=== PATIENT | male | born 1965 | race Caucasian/White ===

== ENCOUNTER 2016-09-24 01:15 | Emergency (ER) | payer BC ==
--- NOTE | 2016-09-24 01:34 | ERPHSYRPT ---
- History of Present Illness Time Seen by Provider: 09/24/16 01:25 Source: patient Exam Limitations: no limitations Patient Subjective Stated Complaint: STATES THAT HE WAS AWAKENED SUDDENLY WITH SENSATION OF UNABLE TO BREATHE - STATES THAT HE FELT LIKE HIS AIRWAY SHUT OFF - STATES THAT HE DID PROAIR INHALER AND WAS ABLE TO BREATHE AFTERWARDS Triage Nursing Assessment: AMBULATORY TO TREATMENT AREA - STEADY GAIT - MOVES ALL EXTREMITIES WITH EQUAL STRENGTH. RESPS EASY - NON-LABORED. SKIN PWD - NO RASH/INJURY. ALERT/ORIENTED - PLEASANT AFFECT Physician History: FOR THE PAST WEEK PT HAS HAD COUGH, INTERMITTENT DIARRHEA AND A RAW THROAT WITH WHEEZING YESTERDAY. TONIGHT PT AWOKE SUDDENLY AND COULD NOT GET AIR IN INITIALLY BUT USED PROAIR AND IS NOW BREATHING NORMALLY. PT HAS A HX OF REFLUX AND POSSIBLY HAS ASPIRATED TONIGHT. PT DENIES CHEST PAIN, FEVER, VOMITING. Allergies/Adverse Reactions: No Known Drug Allergies Allergy (Unverified 09/24/16 01:16) Home Medications: Albuterol Sulfate [Proair Hfa] 2 puff IH Q12H PRN PRN 09/24/16 [History] Alprazolam 0.25 mg [xanAX 0.25 MG] 0.25 mg PO BID 09/24/16 [History] Atorvastatin Calcium 20 mg PO DAILY 09/24/16 [History] Loratadine 10 mg [Claritin 10 mg] 10 mg PO DAILY 09/24/16 [History] Omeprazole 20 MG [Prilosec 20 mg] 20 mg PO DAILY 09/24/16 [History] Hx Tetanus, Diphtheria Vaccination/Date Given: Yes Hx Influenza Vaccination/Date Given: Yes Hx Pneumococcal Vaccination/Date Given: Yes Immunizations Up to Date: Yes - Review of Systems Constitutional: No Fever Ears, Nose, & Throat: Throat Pain Respiratory: Cough, Dyspnea, Wheezing Cardiac: No Chest Pain Abdominal/Gastrointestinal: Diarrhea, No Abdominal Pain, No Vomiting All Other Systems: Reviewed and Negative - Past Medical History Pertinent Past Medical History: Yes Cardiac History: High Cholesterol Respiratory History: Asthma - Past Surgical History Past Surgical History: Yes Gastrointestinal: Appendectomy, Cholecystectomy - Social History Smoking Status: Never smoker Exposure to second hand smoke: No Drug Use: none Patient Lives Alone: No - Nursing Vital Signs Nursing Vital Signs: Initial Vital Signs Temperature 97.8 F Temperature Source Oral Pulse Rate 95 Respiratory Rate 18 Blood Pressure [Right Arm] 142/92 Pain Intensity 0 - Physical Exam General Appearance: alert Eye Exam: PERRL/EOMI Ears, Nose, Throat Exam: TMs normal, moist mucous membranes, pharyngeal erythema Neck Exam: normal inspection Respiratory Exam: other (BRONCHIAL B.S. ALL CAMPBELL.) Cardiovascular Exam: normal heart sounds Gastrointestinal/Abdomen Exam: soft, normal bowel sounds Back Exam: normal range of motion Extremity Exam: other (NO ANKLE EDEMA) Neurologic Exam: alert, cooperative Skin Exam: warm, dry SpO2 Interpretation: normal SpO2: 98 Oxygen Delivery: Room Air - Course Nursing assessment & vital signs reviewed: Yes - Departure Time of Disposition: 01:46 Departure Disposition: Home Clinical Impression: BRONCHITIS, PHARYNGITIS Condition: Fair Critical Care Time: No Instructions: Bronchitis Additional Instructions: FOLLOW UP WITH PRIVATE DOCTOR TOMORROW. Prescriptions: Guaifenesin/Codeine Phosphate [Robitussin AC Syrup] 10 ml PO Q4H PRN PRN #120 ml PRN Reason: Cough Azithromycin 250 mg [Zithromax 250 MG TABLET] 250 mg PO ZPACK #6 tablet
[2016-09-24] MEDS ORDERED: Rocephin 1000 MG INJ IM ONE (01:35)
[2016-09-24] MEDS ORDERED: Robitussin AC Syrup Unit Dose Cup PO PRN (01:35)
[2016-09-24] MEDS ORDERED: Robitussin AC Syrup Unit Dose Cup ONE (01:38)
[2016-09-24] MEDS ORDERED: Rocephin 1000 MG INJ ONE (01:38)
[2016-09-24] MEDS ORDERED: XYLOCAINE 1% HCL 20 ML MDV ONE (01:38)
[2016-09-24 02:09] VITALS: BP 133/90; PULSE 88; O2SAT 96
== END 2016-09-24 02:09 | disposition home or self-care (01) ==
LOC: ED 01:15
DX: J40 Bronchitis, not specified as acute or chronic (principal); J02.9 Acute pharyngitis, unspecified
CPT/HCPCS: 96372; 99284; J0696; A9270-GY

== ENCOUNTER 2016-10-15 21:34 | Emergency (ER) | payer BC ==
[2016-10-15] MEDS ORDERED: solu-MEDROL 125 MG IM ONE (21:52)
[2016-10-15] MEDS ORDERED: Rocephin 1000 MG INJ IM ONE (21:53)
--- NOTE | 2016-10-15 21:56 | ERPHSYRPT ---
- History of Present Illness Time Seen by Provider: 10/15/16 21:54 Source: patient Exam Limitations: no limitations Patient Subjective Stated Complaint: pt reports 4 episodes of diarrhea beginning today-states that he just finished a z-pack for bronchitis-states he is still coughing-nonproductive cough Triage Nursing Assessment: pt pink warm et byh-qigow-scu cough noted during triage-lungs clear et equal bilaterally Physician History: pt reports 4 episodes of diarrhea beginning today-states that he just finished a z-pack for bronchitis-states he is still coughing-nonproductive cough Timing/Duration: today Severity: mild Associated Symptoms: cough Allergies/Adverse Reactions: No Known Drug Allergies Allergy (Verified 10/15/16 21:43) Home Medications: Albuterol Sulfate [Proair Hfa] 2 puff IH Q12H PRN PRN 09/24/16 [History] Alprazolam 0.25 mg [xanAX 0.25 MG] 0.25 mg PO BID 09/24/16 [History] Atorvastatin Calcium 20 mg PO DAILY 09/24/16 [History] Loratadine 10 mg [Claritin 10 mg] 10 mg PO DAILY 09/24/16 [History] Omeprazole 20 MG [Prilosec 20 mg] 20 mg PO DAILY 09/24/16 [History] Hx Tetanus, Diphtheria Vaccination/Date Given: Yes Hx Influenza Vaccination/Date Given: Yes Hx Pneumococcal Vaccination/Date Given: Yes Immunizations Up to Date: Yes - Review of Systems Constitutional: No Fever, No Chills Eyes: No Symptoms Ears, Nose, & Throat: No Symptoms Respiratory: Cough, No Dyspnea Cardiac: No Chest Pain, No Edema, No Syncope Abdominal/Gastrointestinal: Diarrhea, No Abdominal Pain, No Nausea, No Vomiting Genitourinary Symptoms: No Dysuria Musculoskeletal: No Back Pain, No Neck Pain Skin: No Rash Neurological: No Dizziness, No Focal Weakness, No Sensory Changes Psychological: No Symptoms Endocrine: No Symptoms All Other Systems: Reviewed and Negative - Past Medical History Pertinent Past Medical History: Yes Cardiac History: High Cholesterol Respiratory History: Asthma - Past Surgical History Past Surgical History: Yes Gastrointestinal: Appendectomy, Cholecystectomy - Social History Smoking Status: Never smoker Exposure to second hand smoke: No Drug Use: none Patient Lives Alone: No - Nursing Vital Signs Nursing Vital Signs: Initial Vital Signs Temperature 97.6 F Temperature Source Oral Pulse Rate 104 Respiratory Rate 20 Blood Pressure [Right Arm] 139/75 Pain Intensity 0 - Physical Exam General Appearance: no apparent distress, alert Eye Exam: PERRL/EOMI, eyes nml inspection Ears, Nose, Throat Exam: normal ENT inspection, TMs normal, pharynx normal, moist mucous membranes Neck Exam: normal inspection, non-tender, supple, full range of motion Respiratory Exam: normal breath sounds, lungs clear, No respiratory distress Cardiovascular Exam: regular rate/rhythm, normal heart sounds, normal peripheral pulses Gastrointestinal/Abdomen Exam: soft, normal bowel sounds, No tenderness, No mass Back Exam: normal inspection, normal range of motion, No CVA tenderness, No vertebral tenderness Extremity Exam: normal inspection, normal range of motion, pelvis stable Neurologic Exam: alert, oriented x 3, cooperative, normal mood/affect, nml cerebellar function, nml station & gait, sensation nml, No motor deficits Skin Exam: normal color, warm, dry, No rash Lymphatic Exam: No adenopathy SpO2: 97 Oxygen Delivery: Room Air - Course Nursing assessment & vital signs reviewed: Yes Ordered Tests: Medication Summary Generic Name Dose Route Start Last Admin Trade Name Freq PRN Reason Stop Dose Admin Ceftriaxone Sodium 1,000 mg 10/15/16 21:53 Rocephin 1000 Mg Inj IM 10/15/16 21:54 STAT ONE Methylprednisolone Sodium Succinate 125 mg 10/15/16 21:52 Solu-Medrol 125 Mg IM 10/15/16 21:53 STAT ONE - Progress Progress: unchanged Counseled pt/family regarding: diagnosis, need for follow-up - Departure Time of Disposition: 21:56 Departure Disposition: Home Clinical Impression: Bronchitis, Diarrhea due to drug Condition: Stable Critical Care Time: No Referrals: MICHELE PERRY [Primary Care Provider] - Additional Instructions: Please follow the instructions given to you. Please take your medication as prescribed if given. If symptoms recur or get worse, come back to the emergency room if you cannot reach your primary care physician, or call your primary care physician for an appointment. Again if your symptoms get worse, come back to the emergency room. Thanks for visiting emergency room, and let us take care of you. Prescriptions: Doxycycline Hyclate 100 mg PO BID #20 tablet
[2016-10-15] MEDS ORDERED: Rocephin 1000 MG INJ ONE (21:57)
[2016-10-15] MEDS ORDERED: XYLOCAINE 1% HCL 20 ML MDV ONE (21:57)
[2016-10-15] MEDS ORDERED: solu-MEDROL 125 MG ONE (21:57)
[2016-10-15 22:15] VITALS: BP 136/86; PULSE 78; O2SAT 96
== END 2016-10-15 22:14 | disposition home or self-care (01) ==
LOC: ED 21:34
DX: J40 Bronchitis, not specified as acute or chronic (principal); K52.1 Toxic gastroenteritis and colitis
CPT/HCPCS: 96372; 99284; J0696; J2930

== ENCOUNTER 2016-12-13 22:23 | Emergency (ER) | payer BC ==
[2016-12-13 22:50] VITALS: BP 121/78; PULSE 123; O2SAT 97
[2016-12-13] MEDS ORDERED: NORCO 5/325 MG PO ONE (22:56)
[2016-12-13] MEDS ORDERED: Rocephin 1000 MG INJ IM ONE (22:56)
--- NOTE | 2016-12-13 22:57 | ERPHSYRPT ---
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 has been having body aches and high fevers. took 800mg ibuprofin at 20:45 and fever actually went up. Triage Nursing Assessment: pt alert and orietnedx3, lung sounds cler, puopils perr3, diaphoretic, pulses equal bialteral radius, has roughly ortiz size area located on left thigh where he states tick was latched on 6 weeks ago, area is reddened and still very present on skin ambulated well gait is steady , pt stated mild weakness and body aches over past 3 days. Physician History: SIX WEEKS AGO PT WAS BITTEN BY A SMALL TICK ON THE LEFT THIGH. PT STATES THE TICK WAS EMBEDDED IN HIS LEFT THIGH FOR LESS THAN 3 DAYS. FOR THE PAST 3 DAYS PT HAS HAD BODY ACHES; FOR THE PAST 2 DAYS FEVER UP TO 102 DEGREES; TODAY DIAPHORESIS AND CHILLS. PT DENIES COUGH, CHEST PAIN, SHORTNESS OF AIR, ABDOMINAL PAIN. Allergies/Adverse Reactions: No Known Drug Allergies Allergy (Verified 10/15/16 21:43) Home Medications: Albuterol Sulfate [Proair Hfa] 2 puff IH Q12H PRN PRN 09/24/16 [History] Alprazolam 0.25 mg [xanAX 0.25 MG] 0.25 mg PO BID 09/24/16 [History] Atorvastatin Calcium 20 mg PO DAILY 09/24/16 [History] Loratadine 10 mg [Claritin 10 mg] 10 mg PO DAILY 09/24/16 [History] Omeprazole 20 MG [Prilosec 20 mg] 20 mg PO DAILY 09/24/16 [History] Hx Tetanus, Diphtheria Vaccination/Date Given: Yes Hx Influenza Vaccination/Date Given: Yes Hx Pneumococcal Vaccination/Date Given: Yes Immunizations Up to Date: Yes - Review of Systems Constitutional: Fever, Chills Respiratory: No Dyspnea Cardiac: No Chest Pain Abdominal/Gastrointestinal: No Abdominal Pain, No Vomiting Musculoskeletal: Myalgias Neurological: No Headache Endocrine: Excessive Sweating All Other Systems: Reviewed and Negative - Past Medical History Pertinent Past Medical History: Yes Cardiac History: High Cholesterol Respiratory History: Asthma - Past Surgical History Past Surgical History: Yes Gastrointestinal: Appendectomy, Cholecystectomy - Social History Smoking Status: Never smoker Exposure to second hand smoke: No Drug Use: none Patient Lives Alone: No - Nursing Vital Signs Nursing Vital Signs: Initial Vital Signs Temperature 102 F 12/13/16 22:23 Pulse Rate 123 H 12/13/16 22:23 Respiratory Rate 18 12/13/16 22:23 Blood Pressure 121/78 12/13/16 22:23 O2 Sat by Pulse Oximetry 97 12/13/16 22:23 Pain Scale Pain Intensity 3 - Physical Exam General Appearance: alert Eye Exam: PERRL/EOMI Ears, Nose, Throat Exam: TMs normal, moist mucous membranes, pharyngeal erythema Neck Exam: normal inspection, full range of motion Respiratory Exam: normal breath sounds, lungs clear Cardiovascular Exam: normal heart sounds Gastrointestinal/Abdomen Exam: soft, normal bowel sounds Back Exam: normal range of motion Extremity Exam: No pedal edema Neurologic Exam: alert, cooperative Skin Exam: other (2 mm DIAMETER MACULAR ERYTHEMA OVER SUPERIOR LEFT ANTERIOLATERAL THIGH) SpO2 Interpretation: normal SpO2: 97 Oxygen Delivery: Room Air - Course Nursing assessment & vital signs reviewed: Yes Ordered Tests: Medication Summary Discontinued Medications Generic Name Dose Route Start Last Admin Trade Name Freq PRN Reason Stop Dose Admin Hydrocodone Bitart/Acetaminophen 2 tab 12/13/16 22:56 [place] 5/325 Mg PO 12/13/16 22:57 STAT ONE Ceftriaxone Sodium 1,000 mg 12/13/16 22:56 Rocephin 1000 Mg Inj IM 12/13/16 22:57 STAT ONE - Departure Time of Disposition: 23:12 Departure Disposition: Home Clinical Impression: PHARYNGITIS Condition: Stable Critical Care Time: No Instructions: Pharyngitis/Tonsillopharyngitis -- Adult Additional Instructions: FOLLOW UP WITH PRIVATE DOCTOR TOMORROW. Prescriptions: Ibuprofen 200 mg [Motrin 200 mg] 600 mg PO Q6HPRN PRN #30 tablet PRN Reason: Fever Azithromycin 250 mg [Zithromax 250 MG TABLET] 250 mg PO ZPACK #6 tablet
[2016-12-13] MEDS ORDERED: Rocephin 1000 MG INJ ONE (22:59)
[2016-12-13] MEDS ORDERED: XYLOCAINE 1% HCL 20 ML MDV ONE (22:59)
[2016-12-13] MEDS ORDERED: NORCO 5/325 MG ONE (22:59)
== END 2016-12-13 23:28 | disposition home or self-care (01) ==
LOC: ED 22:23
DX: J02.9 Acute pharyngitis, unspecified (principal)
CPT/HCPCS: 96372; 99284; J0696; A9270-GY

== ENCOUNTER 2017-06-23 02:37 | Emergency (ER) | payer BC ==
[2017-06-23 02:47] VITALS: BP 142/89
[2017-06-23] MEDS ORDERED: Sodium Chloride 0.9% 1000 ML 1,000 ML IV STA (03:01)
[2017-06-23] MEDS ORDERED: Zofran 4 MG/2 ML VIAL IV ONE (03:01)
--- NOTE | 2017-06-23 03:08 | ERPHSYRPT ---
- History of Present Illness Time Seen by Provider: 06/23/17 02:57 Historian: patient Exam Limitations: no limitations Patient Subjective Stated Complaint: Emesis Triage Nursing Assessment: Pt presents to the ED with complaints of emesis that began at approximately 1800 today. Pt states "I think I have food poisoning." Pt denies pain or other complaints. Pt states approximately 7 episodes of emesis. Pt is A7O x4, no distress noted. Physician History: Pt started c/o diffuse abdominal pain, cramps, vomiting, diarrhea since yesterday. He denies vomiting blood or coffee ground material, no fever, chills , bloody or black stool or urinary complaints. He also denies cold symptoms, sore throat, congestion or chest pain. Timing/Duration: yesterday Activities at Onset: none Quality: cramping Abdominal Pain Onset Location: RLQ, LLQ, periumbilical Pain Radiation: no radiation Severity of Pain-Max: severe Severity of Pain-Current: moderate Modifying Factors: Improves With: nothing Associated Symptoms: diarrhea, loss of appetite, nausea, vomiting Previous symptoms: no prior history Allergies/Adverse Reactions: No Known Drug Allergies Allergy (Verified 10/15/16 21:43) Home Medications: Albuterol Sulfate [Proair Hfa] 2 puff IH Q12H PRN PRN 09/24/16 [History] Alprazolam 0.25 mg [xanAX 0.25 MG] 0.25 mg PO BID 09/24/16 [History] Atorvastatin Calcium 20 mg PO DAILY 09/24/16 [History] Loratadine 10 mg [Claritin 10 mg] 10 mg PO DAILY 09/24/16 [History] Omeprazole 20 MG [Prilosec 20 mg] 20 mg PO DAILY 09/24/16 [History] Hx Tetanus, Diphtheria Vaccination/Date Given: Yes Hx Influenza Vaccination/Date Given: Yes Hx Pneumococcal Vaccination/Date Given: Yes Immunizations Up to Date: Yes - Review of Systems Constitutional: No Symptoms Abdominal/Gastrointestinal: Abdominal Pain, Nausea, Vomiting, Diarrhea All Other Systems: Reviewed and Negative - Past Medical History Pertinent Past Medical History: Yes Cardiac History: High Cholesterol Respiratory History: Asthma Psycho-Social History: Anxiety - Past Surgical History Past Surgical History: Yes Gastrointestinal: Appendectomy, Cholecystectomy - Social History Smoking Status: Never smoker Exposure to second hand smoke: No Drug Use: none Patient Lives Alone: No - Nursing Vital Signs Nursing Vital Signs: Initial Vital Signs Temperature 97.9 F 06/23/17 02:42 Pulse Rate 115 H 06/23/17 02:42 Respiratory Rate 16 06/23/17 02:42 Blood Pressure 142/89 06/23/17 02:42 O2 Sat by Pulse Oximetry 95 06/23/17 02:42 Pain Scale Pain Intensity 0 - Physical Exam General Appearance: no apparent distress Eye Exam: eyes nml inspection Ears, Nose, Throat Exam: normal ENT inspection, pharynx normal Neck Exam: normal inspection, non-tender, supple, No JVD Respiratory Exam: normal breath sounds, lungs clear, airway intact, No chest tenderness Cardiovascular Exam: regular rate/rhythm, normal heart sounds, normal peripheral pulses, No murmur Gastrointestinal/Abdomen Exam: soft, normal bowel sounds, tenderness (mild, diffuse), No distention, No mass, No guarding, No pulsatile mass, No rebound Back Exam: normal inspection, No CVA tenderness Extremity Exam: normal inspection, No calf tenderness Neurologic Exam: alert, oriented x 3, cooperative, normal mood/affect Skin Exam: normal color, warm, dry, No rash Lymphatic Exam: No adenopathy SpO2 Interpretation: normal SpO2: 95 Oxygen Delivery: Room Air - Course Nursing assessment & vital signs reviewed: Yes EKG Interpreted by Me: RATE (111/min), Sinus Rhythm, Sinus Tach, NORMAL AXIS, NORMAL INTERVALS, Non-specific ST Changes - CT Exams Abdomen/Pelvis CT Interpretation: Negative Ordered Tests: Active Orders 24 hr Category Date Time Status EKG-ER Only STAT Care 06/23/17 03:01 Active IV Insertion STAT Care 06/23/17 03:01 Active NPO (ED) STAT Care 06/23/17 03:01 Active ABDOMEN AND PELVIS W CONTRAST [CT] Stat Exams 06/23/17 03:02 Taken AMYLASE Stat Lab 06/23/17 03:20 Completed CBC W DIFF Stat Lab 06/23/17 03:20 Completed CMP Stat Lab 06/23/17 03:20 Completed LIPASE Stat Lab 06/23/17 03:20 Completed Lactic Acid Stat Lab 06/23/17 03:30 Results Manual Differential NC Stat Lab 06/23/17 03:20 Completed TROPONIN Q3H Lab 06/23/17 03:20 Completed TROPONIN Q3H Lab 06/23/17 06:15 Ordered TROPONIN Q3H Lab 06/23/17 09:15 Ordered TROPONIN Q3H Lab 06/23/17 12:15 Ordered TROPONIN Q3H Lab 06/23/17 15:15 Ordered UA W/RFX UR CULTURE Stat Lab 06/23/17 04:25 Completed Medication Summary Discontinued Medications Generic Name Dose Route Start Last Admin Trade Name Yousufq PRN Reason Stop Dose Admin Sodium Chloride 1,000 mls @ 999 mls/hr 06/23/17 03:01 06/23/17 03:12 Sodium Chloride 0.9% 1000 Ml IV 06/23/17 04:01 999 mls/hr .Q1H1M STA Administration Sodium Chloride Confirm 06/23/17 03:12 Sodium Chloride 0.9% 1000 Ml Administered 06/23/17 03:13 Dose 1,000 mls @ ud .ROUTE .STK-MED ONE Ondansetron HCl 4 mg 06/23/17 03:01 06/23/17 03:13 Zofran 4 Mg/2 Ml Vial IV 06/23/17 03:02 4 mg STAT ONE Administration Ondansetron HCl Confirm 06/23/17 03:12 Zofran 4 Mg/2 Ml Vial Administered 06/23/17 03:13 Dose 4 mg .ROUTE .STK-MED ONE Lab/Rad Data: Laboratory Result Diagrams 06/23/17 03:20 06/23/17 03:20 Laboratory Results 06/23/17 06/23/17 06/23/17 Range/Units 04:25 03:30 03:20 WBC (4.0-10.5) K/mm3 RBC (4.1-5.6) M/mm3 Hgb (12.5-18.0) gm/dl Hct (42-50) % MCV (78-100) fl MCH (26-32) pg MCHC (32-36) g/dl RDW (11.5-14.0) % Plt Count (150-450) K/mm3 MPV (6-9.5) fl Sodium (136-145) mEq/L Potassium (3.5-5.1) mEq/L Chloride (98-107) mEq/L Carbon Dioxide (21-32) mEq/L Anion Gap (5-15) MEQ/L BUN (9-20) mg/dL Creatinine (0.55-1.30) mg/dl Estimated GFR ML/MIN Glucose (70-110) MG/DL Lactic Acid 2.2 H (0.4-2.0) Calcium (8.5-10.1) mg/dL Total Bilirubin (0.2-1.0) mg/dL AST (15-37) U/L ALT (12-78) U/L Alkaline Phosphatase (46-116) U/L Troponin I (0.000-0.056) ng/ml Serum Total Protein (6.4-8.2) gm/dL Albumin (3.4-5.0) g/dL Amylase (25-115) U/L Lipase (73-393) U/L Ur Collection Type CLEAN CATCH Urine Color YELLOW (YELLOW) Urine Appearance CLEAR (CLEAR) Urine pH 5.0 (5-6) Ur Specific [place] 1.015 (1.005-1.025) Urine Protein NEGATIVE (Negative) Urine Ketones MODERATE (NEGATIVE) Urine Blood NEGATIVE (0-5) [place]/ul Urine Nitrite NEGATIVE (NEGATIVE) Urine Bilirubin NEGATIVE (NEGATIVE) Urine Urobilinogen NORMAL (0-1) mg/dL Ur Leukocyte Esterase NEGATIVE (NEGATIVE) Urine Culture Reflexed NO (NO) Urine Glucose NEGATIVE (NEGATIVE) mg/dL Influenza Type A Ag NEGATIVE (NEGATIVE) Influenza Type B Ag NEGATIVE (NEGATIVE) RSV (PCR) NEGATIVE (Negative) Specimen Received 06/23/17 0425 06/23/17 06/23/17 06/23/17 Range/Units 03:20 03:20 03:20 WBC 12.9 H (4.0-10.5) K/mm3 RBC 5.92 H (4.1-5.6) M/mm3 Hgb 17.4 (12.5-18.0) gm/dl Hct 51.0 H (42-50) % MCV 86.1 (78-100) fl MCH 29.3 (26-32) pg MCHC 34.1 (32-36) g/dl RDW 13.4 (11.5-14.0) % Plt Count 218 (150-450) K/mm3 MPV 11.0 H (6-9.5) fl Sodium 142 (136-145) mEq/L Potassium 4.1 (3.5-5.1) mEq/L Chloride 105 (98-107) mEq/L Carbon Dioxide 25.3 (21-32) mEq/L Anion Gap 16.0 H (5-15) MEQ/L BUN 17 (9-20) mg/dL Creatinine 1.38 H (0.55-1.30) mg/dl Estimated GFR 57 ML/MIN Glucose 177 H (70-110) MG/DL Lactic Acid (0.4-2.0) Calcium 9.3 (8.5-10.1) mg/dL Total Bilirubin 0.70 (0.2-1.0) mg/dL AST 19 (15-37) U/L ALT 40 (12-78) U/L Alkaline Phosphatase 68 (46-116) U/L Troponin I < 0.017 (0.000-0.056) ng/ml Serum Total Protein 8.3 H (6.4-8.2) gm/dL Albumin 4.5 (3.4-5.0) g/dL Amylase 26 (25-115) U/L Lipase 86 (73-393) U/L Ur Collection Type Urine Color (YELLOW) Urine Appearance (CLEAR) Urine pH (5-6) Ur Specific [place] (1.005-1.025) Urine Protein (Negative) Urine Ketones (NEGATIVE) Urine Blood (0-5) [place]/ul Urine Nitrite (NEGATIVE) Urine Bilirubin (NEGATIVE) Urine Urobilinogen (0-1) mg/dL Ur Leukocyte Esterase (NEGATIVE) Urine Culture Reflexed (NO) Urine Glucose (NEGATIVE) mg/dL Influenza Type A Ag (NEGATIVE) Influenza Type B Ag (NEGATIVE) RSV (PCR) (Negative) Specimen Received - Progress Progress: improved Progress Note: 06/23/17 04:37 Improved, afebrile, denies pain, or nausea, did not vomit. Ct and other results discussed with him, will be discharged with instructions to continue liquid diet , and follow up with PCP next week, return if worsening, fever> 102F. He understood, all questions answered. - Departure Time of Disposition: 04:38 Departure Disposition: Home Clinical Impression: Gastroenteritis Condition: Stable Critical Care Time: No Referrals: MICHELE PERRY [Primary Care Provider] - Instructions: Vomiting -- Adult, Viral Gastroenteritis, Adult (DC) Additional Instructions: Rest x 2-3 days, continue liquid diet, return if severe pain, vomiting, fever > 102 F! Prescriptions: Ondansetron ODT 4 MG [Zofran Odt 4 mg] 4 mg PO Q6H PRN PRN 5 Days #10 tab.rapdis PRN Reason: Vomiting
[2017-06-23] MEDS ORDERED: Zofran 4 MG/2 ML VIAL ONE (03:12)
[2017-06-23] MEDS ORDERED: Sodium Chloride 0.9% 1000 ML 1,000 ML ONE (03:12)
[2017-06-23 03:24] LABS: Granulocyte Absolute (ANC) 12.05 (1.4-6.9); Hemoglobin 17.4 gm/dl (12.5-18.0); Mean Cell Volume 86.1 fl (78-100); Mean Corpuscular Hgb Concent. 34.1 g/dl (32-36); Platelet Count 218 K/mm3 (150-450); Red Blood Count 5.92 M/mm3 (4.1-5.6); Red Cell Distribution Width 13.4 % (11.5-14.0); White Blood Count 12.9 K/mm3 (4.0-10.5)
[2017-06-23 03:38] LABS: Lactic Acid 2.2 (0.4-2.0)
[2017-06-23 03:51] LABS: ALBUMIN 4.5 g/dL (3.4-5.0); BILIRUBIN,TOTAL 0.7 mg/dL (0.2-1.0); Calcium 9.3 mg/dL (8.5-10.1); Carbon Dioxide 25.3 mEq/L (21-32); Creatinine 1 1.38 mg/dl (0.55-1.30); Potassium 4.1 mEq/L (3.5-5.1); Total Protein 8.3 gm/dL (6.4-8.2)
[2017-06-23 03:55] LABS: Mean Corpuscular Hemoglobin 29.3 pg (26-32)
[2017-06-23 03:59] LABS: INFLUENZA A NEGATIVE (NEGATIVE); INFLUENZA B NEGATIVE (NEGATIVE); RESPIRATORY SYNCTIAL VIRUS NEGATIVE (Negative)
[2017-06-23 04:16] VITALS: PULSE 100
[2017-06-23 04:31] LABS: Appearance CLEAR (CLEAR); Bilirubin NEGATIVE (NEGATIVE); Blood NEGATIVE Ery/ul (0-5); Glucose NEGATIVE (NEGATIVE); Ketones MODERATE (NEGATIVE); Leukocyte Esterase NEGATIVE (NEGATIVE); Nitrite NEGATIVE (NEGATIVE); Protein,Urine Dip NEGATIVE (Negative); Specific Gravity 1.015 (1.005-1.025); Urobilinogen NORMAL mg/dL (0-1)
[2017-06-23 04:40] VITALS: O2SAT 95
[2017-06-23 05:15] LABS: Lymphocytes 12 % (24-44); Monocyte 4 % (0.0-12.0); Neutrophils 84 % (36.-66.); Platelet Estimate NORMAL (NORMAL); Total Cells Counted 100
--- NOTE | 2017-06-23 09:08 | XRAY ---
Indication: Nausea, vomiting, and diarrhea. Possible food poisoning per patient. Multiple contiguous axial images obtained through the abdomen and pelvis using 80 cc Isovue 370 contrast only. Comparison: None Lung bases demonstrates mild bibasilar dependent atelectasis. The heart is not enlarged. Stomach is moderately distended with fluid. Small bowel loops are also mildly fluid distended throughout with bowel wall thickening/enhancement, ileus versus gastroenteritis. Minimal scattered colonic diverticulosis without diverticulitis. Previous reported appendectomy and cholecystectomy. No free fluid/air. Remaining liver, pancreas, spleen, adrenal glands, kidneys, ureters, bladder, and aorta appear normal in CT appearance and attenuation. No pathologic retroperitoneal lymphadenopathy. Osseous structures intact with mild degenerative changes throughout the spine. Impression: 1. Fluid distended stomach and small bowel loops with bowel wall thickening/enhancement, ileus versus gastroenteritis. 2. Minimal colonic diverticulosis. Comment: Preliminary interpretation was made by [facility]. No discrepancy. CT DI 22.48
== END 2017-06-23 04:51 | disposition home or self-care (01) ==
LOC: ED 02:37
DX: K52.9 Noninfective gastroenteritis and colitis, unspecified (principal); J45.909 Unspecified asthma, uncomplicated; F41.9 Anxiety disorder, unspecified
CPT/HCPCS: 36000; 36415; 74177; 80053; 81002; 82150; 83605; 83690; 84484; 85025; 87631; 93005; 96360; 96374; 99284; J2405

== ENCOUNTER 2017-10-06 | Inpatient (IN) | payer BC ==
[2017-10-06] MEDS ORDERED: Sodium Chloride 0.9% 1000 ML 1,000 ML IV SCH (20:15)
[2017-10-06] MEDS ORDERED: VANCOCIN 1 GM VIAL*** 2 GM in Sodium Chloride 0.9% 250 ML 250 ML IV SCH (22:00)
[2017-10-06] MEDS: TYLENOL 325 MG PO PRN (23:23)
[2017-10-06] MEDS ORDERED: Vancomycin 1GM/ Ns 250ML*** 500 ML IV ONE (23:44)
[2017-10-07] MEDS: ZOCOR 20MG PO SCH ×2 (00:54→21:07)
[2017-10-07] MEDS: Protonix 40MG Tablet PO SCH ×2 (00:54→21:06)
[2017-10-07] MEDS: xanAX 0.25 MG PO SCH ×3 (00:54→21:07)
[2017-10-07] MEDS: TYLENOL 325 MG PO PRN ×3 (05:20→21:06)
[2017-10-07 06:20] LABS: Hematocrit 43.4 % (42-50); Mean Cell Volume 86.3 fl (78-100); Mean Corpuscular Hemoglobin 29.8 pg (26-32); Mean Corpuscular Hgb Concent. 34.6 g/dl (32-36); Mean Platelet Volume 11.1 fl (6-9.5); Platelet Count 129 K/mm3 (150-450); Red Blood Count 5.03 M/mm3 (4.1-5.6); Red Cell Distribution Width 13.5 % (11.5-14.0); White Blood Count 3.1 K/mm3 (4.0-10.5)
[2017-10-07 06:35] LABS: ALBUMIN 3.6 g/dL (3.5-5.0); ALKALINE PHOSPHATASE 84 U/L (38-126); ANION GAP 11.1 MEQ/L (5-15); BLOOD UREA NITROGEN 11 mg/dL (9-20); CHLORIDE 104 mmol/L (98-107); Calcium 8.5 mg/dL (8.4-10.2); Carbon Dioxide 25 mmol/L (22-30); Creatinine 1 0.89 mg/dL (0.66-1.25); Glucose 120 mg/dL (74-106); Potassium 3.5 mmol/L (3.5-5.1); SGOT/AST 71 U/L (17-59); SGPT/ALT 73 U/L (0-50); SODIUM 136 mmol/L (137-145); Total Protein 6.6 g/dL (6.3-8.2)
[2017-10-07 07:17] LABS: BAND 12 % (0.0-2.0); Lymphocytes 28 % (24-44); Monocyte 2 % (0.0-12.0); Neutrophils 58 % (36.-66.); Total Cells Counted 100
[2017-10-07 07:18] LABS: ANISOCYTOSIS 1+; Platelet Estimate NORMAL (NORMAL); Poikilocytosis 1+
[2017-10-07 07:43] LABS: Amourphous Crystal MANY /HPF (NEGATIVE); Appearance HAZY (CLEAR); Bacteria PACKED /HPF (NEGATIVE); Bilirubin NEGATIVE (NEGATIVE); Blood NEGATIVE Ery/ul (0-5); Epithelial Cells FEW /HPF (FEW); Glucose NEGATIVE (NEGATIVE); Ketones NEGATIVE (NEGATIVE); Leukocyte Esterase TRACE (NEGATIVE); Mucus SLIGHT /HPF (NEGATIVE); Nitrite NEGATIVE (NEGATIVE); Protein,Urine Dip 30 (Negative); RBC 0-2 /HPF (0-2); Urobilinogen NORMAL mg/dL (0-1); WBC 0-2 /HPF (0-5)
[2017-10-07] MEDS: VANCOCIN 1 GM VIAL*** 1.5 GM in Sodium Chloride 0.9% 500 ML 500 ML IV SCH ×2 (09:54→21:07)
[2017-10-07] MEDS ORDERED: Ventolin Hfa MDI IH PRN (09:55)
[2017-10-07] MEDS ORDERED: MOTRIN 200 MG PO PRN (09:55)
[2017-10-07] MEDS ORDERED: MOTRIN 600 MG PO PRN (09:57)
[2017-10-07] MEDS ORDERED: PROVENTIL COMMON CANISTER IH PRN (09:59)
[2017-10-07] MEDS ORDERED: BACILLUS COAGULANS PO SCH (10:00)
[2017-10-07] MEDS ORDERED: NON-FORMULARY ITEM (Multivitamin [Multi-Vitamin Daily] 1 EACH) PO SCH (10:00)
[2017-10-07] MEDS ORDERED: MOMETASONE FUROATE 17 GM NS SCH (10:00)
[2017-10-07] MEDS: Flonase NASAL NS SCH (10:31)
[2017-10-07] MEDS: THERAGRAN MULTIVITAMIN PO SCH (10:31)
[2017-10-07] MEDS: Acidophilus TABLET PO SCH ×2 (10:31→21:06)
[2017-10-07] MEDS: CLARITIN 10 MG PO SCH (10:31)
[2017-10-08] MEDS: TYLENOL 325 MG PO PRN ×4 (04:13→20:46)
[2017-10-08 06:05] LABS: Hematocrit 40.5 % (42-50); Hemoglobin 14.2 gm/dl (12.5-18.0); Mean Cell Volume 85.3 fl (78-100); Mean Corpuscular Hemoglobin 29.9 pg (26-32); Mean Corpuscular Hgb Concent. 35.1 g/dl (32-36); Mean Platelet Volume 10.8 fl (6-9.5); Platelet Count 116 K/mm3 (150-450); Red Blood Count 4.75 M/mm3 (4.1-5.6); Red Cell Distribution Width 13.1 % (11.5-14.0); White Blood Count 3.2 K/mm3 (4.0-10.5)
[2017-10-08 06:17] LABS: ANION GAP 9.9 MEQ/L (5-15); BLOOD UREA NITROGEN 9 mg/dL (9-20); CHLORIDE 105 mmol/L (98-107); Calcium 8.6 mg/dL (8.4-10.2); Carbon Dioxide 25 mmol/L (22-30); Creatinine 1 0.74 mg/dL (0.66-1.25); Glucose 157 mg/dL (74-106); Potassium 3.6 mmol/L (3.5-5.1); SODIUM 136 mmol/L (137-145)
[2017-10-08 08:42] LABS: Lymphocytes 23 % (24-44); Monocyte 4 % (0.0-12.0); Neutrophils 73 % (36.-66.); Total Cells Counted 100
[2017-10-08 08:43] LABS: Platelet Estimate NORMAL (NORMAL)
[2017-10-08] MEDS: THERAGRAN MULTIVITAMIN PO SCH (11:00)
[2017-10-08] MEDS: Acidophilus TABLET PO SCH ×2 (11:00→22:09)
[2017-10-08] MEDS: Flonase NASAL NS SCH (11:00)
[2017-10-08] MEDS: xanAX 0.25 MG PO SCH ×2 (11:00→22:09)
[2017-10-08] MEDS: CLARITIN 10 MG PO SCH (11:00)
[2017-10-08] MEDS: VANCOCIN 1 GM VIAL*** 1.5 GM in Sodium Chloride 0.9% 500 ML 500 ML IV SCH ×2 (11:08→22:11)
[2017-10-08] MEDS: Levofloxacin 500MG/100ML D5W 500 MG/100 ML BAG IV SCH (13:58)
[2017-10-08] MEDS: Bactroban OINTMENT TP SCH ×2 (16:51→22:09)
[2017-10-08] MEDS ORDERED: PHENERGAN WITH CODEINE SYRUP PO PRN (21:12)
--- NOTE | 2017-10-08 21:13 | XRAY ---
Indication: Upper thigh wound infection. Comparison: None 2 views of the left femur demonstrates posterior knee fabella. No other bony, articular, or soft tissue abnormalities.
--- NOTE | 2017-10-08 21:13 | XRAY ---
Indication: Left femur infection. Comparison: September 24, 2016. PA/lateral chest demonstrates minimal left costophrenic angle fibrosis/scarring. Remaining lungs clear. Heart and mediastinal structures within normal limits. Bony thorax intact. Impression: Left base fibrosis/scarring. Remaining chest nonacute.
[2017-10-08] MEDS ORDERED: Robitussin AC Syrup Unit Dose Cup PO PRN (22:06)
[2017-10-08] MEDS: Protonix 40MG Tablet PO SCH (22:09)
[2017-10-08] MEDS: ZOCOR 20MG PO SCH (22:09)
[2017-10-09] MEDS ORDERED: Sodium Chloride 0.9% 1000 ML 1,000 ML ONE (01:09)
[2017-10-09] MEDS: TYLENOL 325 MG PO PRN ×3 (04:16→17:40)
[2017-10-09 05:58] LABS: Granulocyte Absolute (ANC) 2.47 (1.4-6.9); Hematocrit 40.9 % (42-50); Hemoglobin 14.3 gm/dl (12.5-18.0); Mean Cell Volume 85.2 fl (78-100); Mean Corpuscular Hemoglobin 29.8 pg (26-32); Mean Platelet Volume 11.3 fl (6-9.5); Platelet Count 126 K/mm3 (150-450); Red Cell Distribution Width 13.1 % (11.5-14.0); White Blood Count 4.5 K/mm3 (4.0-10.5)
[2017-10-09] MEDS ORDERED: Robitussin AC Syrup Unit Dose Cup PO PRN (07:54)
[2017-10-09] MEDS: Levofloxacin 500MG/100ML D5W 500 MG/100 ML BAG IV SCH (09:27)
[2017-10-09] MEDS: Acidophilus TABLET PO SCH (09:28)
[2017-10-09] MEDS: Bactroban OINTMENT TP SCH (09:28)
[2017-10-09] MEDS: CLARITIN 10 MG PO SCH (09:30)
[2017-10-09] MEDS: Flonase NASAL NS SCH (09:30)
[2017-10-09] MEDS: THERAGRAN MULTIVITAMIN PO SCH (09:31)
[2017-10-09] MEDS: xanAX 0.25 MG PO SCH (09:31)
[2017-10-09] MEDS ORDERED: Levofloxacin 500MG/100ML D5W 500 MG/100 ML BAG IV SCH (10:00)
[2017-10-09] MEDS: VANCOCIN 1 GM VIAL*** 1.5 GM in Sodium Chloride 0.9% 500 ML 500 ML IV SCH ×2 (10:35→10:44)
[2017-10-09] MEDS ORDERED: Vibramycin 100 MG PO SCH ×2 (10:40→22:00)
--- NOTE | 2017-10-09 10:55 | PCM.NOTE ---
Date and Time: 10/09/17 1048 Subjective Assessment: The leg lesions that were initially treated as abscess have completely resolved with no drainage no redness or warmth. The are on the left lower thigh where the I and D was does have a small wound from the hole where the packing was but this is tiny now. He however continues to feel lousy, fatigued, sweats, fevers and nuasea. He has no correlation between the fevers and timing or any other activity. He has no new rash. he has been bitten by several ticks this season and still has a lesion on the leg where the last was removed but none of these resulted in a large rash. He has not traveled recently outside of the [facility], had sick contacts, or eaten any undercooked foods or seafood. Objective Exam General Appearance: no apparent distress, alert, other (appears pale with mild diaphoresis) Neurologic Exam: alert, oriented x 3, cooperative, normal mood/affect, nml cerebellar function, sensation nml, No motor deficits Skin Exam: normal color, warm, dry, pale Eye Exam: PERRL, EOMI, eyes nml inspection, No scleral icterus, No pale conjunctivae Ears, Nose, Throat Exam: normal ENT inspection, pharynx normal, moist mucous membranes Neck Exam: normal inspection, non-tender, supple, full range of motion, No meningismus, No lymphadenopathy Respiratory Exam: normal breath sounds, lungs clear, No respiratory distress Cardiovascular Exam: regular rate/rhythm, normal heart sounds Gastrointestinal/Abdomen Exam: soft, No tenderness, No mass Extremity Exam: normal inspection, normal range of motion Back Exam: normal inspection, normal range of motion, No CVA tenderness, No vertebral tenderness Male Genitalia Exam: deferred Rectal Exam: deferred OBJECTIVE DATA Vital Signs: Vital Signs - 24 hr Temp Pulse Resp BP Pulse Ox 10/09/17 07:16 98.9 F 89 20 130/81 98 10/09/17 04:00 100.1 F 102 H 16 133/74 98 10/08/17 23:49 98.9 F 90 16 136/64 97 10/08/17 20:44 99.4 F 10/08/17 20:00 98.7 F 85 18 137/66 98 10/08/17 16:40 98.3 F 100 H 20 113/81 98 10/08/17 12:22 98.1 F 85 20 127/70 98 Pain Assessment - Last Documented Pain Intensity 0 Pain Scale Used [facility] Intake and Output: Intake & Output 10/06/17 10/07/17 10/08/17 10/09/17 11:59 11:59 11:59 11:59 Intake Total 2088 3180 2880 Output Total 2350 7500 1850 Balance -262 -4320 1030 Weight 99.1 kg Lab Results: Lab Results-Last 24 Hours 10/09/17 10/09/17 Range/Units 05:20 09:30 WBC 4.5 (4.0-10.5) K/mm3 RBC 4.80 (4.1-5.6) M/mm3 Hgb 14.3 (12.5-18.0) gm/dl Hct 40.9 L (42-50) % MCV 85.2 (78-100) fl MCH 29.8 (26-32) pg MCHC 35.0 (32-36) g/dl RDW 13.1 (11.5-14.0) % Plt Count 126 L (150-450) K/mm3 MPV 11.3 H (6-9.5) fl Absolute Granulocytes 2.47 (1.4-6.9) Vancomycin Trough 9.99 L (10-20) ug/mL Radiology Exams: Radiology Procedures Category Date Time Status CHEST 2 VIEWS (PA AND LAT) Routine Exams 10/08/17 17:27 Completed FEMUR Routine Exams 10/08/17 17:27 Completed Assessment/Plan (1) Fever Current Visit: Yes Status: Acute Assessment & Plan: the are of previous infection on the leg is much improved there is no evidence of active infection at this site. with his constellation of the luekopenia, thrombocytopenia, fatigue and recurrent fevers with recent tick bites will cover for tick born illness start doxycycline 100 mg IV BID and sending titers for ehrlichiosis, anaplasmosis, Lyme and Bright spotted fever. other possibilities of drug fever will stop the vancomycin and levaquin as no change on these antibiotics. send blood culture prn fever >100.4 mono also sent as well as HIV testing that is pending. Code(s): R50.9 - FEVER, UNSPECIFIED (2) Tick bite Current Visit: Yes Status: Acute Code(s): W57.XXXA - BIT/STUNG BY NONVENOM INSECT & OTH NONVENOM ARTHROPODS, INIT (3) Failure of outpatient treatment Current Visit: Yes Status: Acute Code(s): Z78.9 - OTHER SPECIFIED HEALTH STATUS (4) Leukopenia Current Visit: Yes Status: Acute Code(s): D72.819 - DECREASED WHITE BLOOD CELL COUNT, UNSPECIFIED (5) Thrombocytopenia Current Visit: Yes Status: Acute
[2017-10-09] MEDS: VIBRAMYCIN 100 MG*** 100 MG in Dextrose 5%/Water IV Soln. 100ML PLUS BAG 100 ML IV SCH (11:08)
[2017-10-09 11:22] LABS: BAND 8 % (0.0-2.0); Lymphocytes 29 % (24-44); Monocyte 2 % (0.0-12.0); Neutrophils 61 % (36.-66.); Total Cells Counted 100
[2017-10-09 11:23] LABS: ANISOCYTOSIS 1+; Poikilocytosis 1+
[2017-10-09 11:26] LABS: Platelet Estimate NORMAL (NORMAL)
[2017-10-10] MEDS: Acidophilus TABLET PO SCH ×2 (00:18→09:41)
[2017-10-10] MEDS: Protonix 40MG Tablet PO SCH (00:18)
[2017-10-10] MEDS: xanAX 0.25 MG PO SCH ×2 (00:19→09:41)
[2017-10-10] MEDS: VIBRAMYCIN 100 MG*** 100 MG in Dextrose 5%/Water IV Soln. 100ML PLUS BAG 100 ML IV SCH (00:19)
[2017-10-10] MEDS: ZOCOR 20MG PO SCH (00:19)
[2017-10-10] MEDS: Bactroban OINTMENT TP SCH ×2 (00:38→09:41)
[2017-10-10 04:32] VITALS: O2SAT 98
[2017-10-10 08:09] VITALS: BP 111/68; PULSE 89
--- NOTE | 2017-10-10 08:51 | PCM.DCORD ---
- Discharge Discharge Date: 10/10/17 Disposition: Home, Self-Care Condition: Good Prescriptions: New Mupirocin [Bactroban OINTMENT] 1 gm TP BID #1 tube Doxycycline Hyclate 100 mg PO BID #28 tablet Acetaminophen 325 mg [Tylenol 325 mg] 650 mg PO Q4H PRN PRN tablet PRN Reason: Pain And/Or Fever Continue Albuterol Sulfate [Proair Hfa] 2 puff IH Q12H PRN PRN PRN Reason: ASTHMA Omeprazole 20 MG [Prilosec 20 mg] 20 mg PO HS Atorvastatin Calcium 20 mg PO HS Alprazolam 0.25 mg [xanAX 0.25 MG] 0.25 mg PO BID Loratadine 10 mg [Claritin 10 mg] 10 mg PO DAILY Bacillus Coagulans [Digestive Advantage] 1 each PO BID Multivitamin [Multi-Vitamin Daily] 1 each PO DAILY Mometasone Furoate [Nasonex] 17 gm NS DAILY Discontinued Ibuprofen 200 mg [Motrin 200 mg] 600 mg PO Q6HPRN PRN #30 tablet PRN Reason: Fever Sulfamethoxazole/Trimethoprim [Sulfamethoxazole-Tmp Ds Tablet] 1 tab PO BID Follow up with: MICHELE PERRY [Primary Care Provider] - 10/23/17 2:15 pm
[2017-10-10 09:06] LABS: HIV Antigen/Antibody Combo Non Reactive (Non Reactive)
[2017-10-10] MEDS: CLARITIN 10 MG PO SCH (09:41)
[2017-10-10] MEDS: Flonase NASAL NS SCH (09:41)
[2017-10-10] MEDS: THERAGRAN MULTIVITAMIN PO SCH (09:45)
[2017-10-10 10:00] LABS: Hematocrit 41.6 % (42-50); Hemoglobin 14.4 gm/dl (12.5-18.0); Mean Cell Volume 86.3 fl (78-100); Mean Corpuscular Hemoglobin 29.9 pg (26-32); Mean Corpuscular Hgb Concent. 34.6 g/dl (32-36); Mean Platelet Volume 10.9 fl (6-9.5); Platelet Count 153 K/mm3 (150-450); Red Blood Count 4.82 M/mm3 (4.1-5.6); Red Cell Distribution Width 13.4 % (11.5-14.0); White Blood Count 6.4 K/mm3 (4.0-10.5)
[2017-10-10 11:13] LABS: ANION GAP 11.7 MEQ/L (5-15); BLOOD UREA NITROGEN 10 mg/dL (9-20); CHLORIDE 103 mmol/L (98-107); Calcium 8.8 mg/dL (8.4-10.2); Carbon Dioxide 27 mmol/L (22-30); Creatinine 1 0.94 mg/dL (0.66-1.25); Glucose 194 mg/dL (74-106); Potassium 3.8 mmol/L (3.5-5.1); SODIUM 138 mmol/L (137-145)
[2017-10-10 14:04] LABS: ATYPICAL LYMPHS 3 %; Lymphocytes 69 % (24-44); Monocyte 3 % (0.0-12.0); Neutrophils 25 % (36.-66.); Platelet Estimate NORMAL (NORMAL); Total Cells Counted 100; Toxic Granulation 1+
[2017-10-12 17:09] LABS: LYME TOTAL WB TOTAL 0.23 index (0.00-0.90)
[2017-10-13 03:21] LABS: Rocky MT.Spotted Fever IgM <1:64 (<1:64)
--- NOTE | 2017-10-13 08:11 | DS ---
DISCHARGE DIAGNOSES: 1) CELLULITIS OF RIGHT UPPER LEG. 2) FEVER. 3) HISTORY OF TICK BITE. 4) LEUKOPENIA. 5) THROMBOCYTOPENIA. DISCHARGE PHYSICAL EXAMINATION: VITALS: Temperature current 98.2F, temperature max 98.8F, heart rate 74 to 89, respiratory rate 16 to 20, blood pressure 111 to 123 over 68 to 73, weight 99.1 kg. Oxygen saturation 95 to 98% on room air. GENERAL: The patient is a pleasant talkative man lying in bed in no acute distress. CVS: He has a regular rate and rhythm. No murmurs, gallops or rubs. CHEST: Clear to auscultation bilaterally. No crackles or wheezes. ABDOMEN: Soft, nontender, nondistended with normal bowel sounds. EXTREMITIES: No clubbing, cyanosis or edema. The lesion on his right upper thigh on the back had a 0.5 cm opening without any surrounding erythema, very minimal serous drainage. SKIN: Warm, dry and intact. HOSPITAL COURSE: 1) CELLULITIS OF HIS RIGHT UPPER LEG: He was admitted to the hospital with this and started on Vancomycin. Dr. Carlos saw him over the weekend and added Levaquin. Dr. Hilario Barone saw him on 10/09/2017 and stopped both of those as his leg was looking better and started him on doxycycline because he had history of a tick bite. He was admitted directly after I saw him in the clinic. He had leukopenia with white blood cell count of 3.6 with 53% neutrophils, 17% bands and 20% lymphocytes. At the time of discharge his white blood cell count was 6.4 with 25% neutrophils, no bands and 69% lymphocytes. He had already finished out a few weeks of Bactrim at home. It was felt that he did not need any antibiotics for the cellulitis. 2) FEVER: He continued to have a fever until he was switched to doxycycline 100 mg IV b.i.d. which was changed to p.o. and will plan to complete a two week course due to the history of a tick bite. 3) HISTORY OF TICK BITE: History was obtained on 10/09/2017 and again the patient was started on doxycycline. Dr. Hilario Barone sent off studies for Lyme disease as well as Ehrlichiosis anaplasmosis and [place] Spotted Fever. He had a blood culture on admission that did not grow anything, a urine culture that did not grow anything. 4) LEUKOPENIA: This resolved during his hospitalization. 5) THROMBOCYTOPENIA: This also resolved during his hospitalization. DISCHARGE MEDICATIONS: Please see his discharge order. DISPOSITION: He was sent home with doxycycline 100 mg p.o. b.i.d. for 14 days. He is to follow up with me in the clinic in October or sooner if there are any problems. He was discharged in good condition to home.
[2017-10-14 17:26] LABS: Anaplasma phag IgM < 1:16 (< 1:16)
--- NOTE | 2017-10-16 08:44 | HP ---
CHIEF COMPLAINT: Fever. HISTORY OF PRESENT ILLNESS: The patient is a 52 year-old white male patient who was seen in the office by Dr. Quezada and directly admitted to the hospital for fever. The patient is known to have recent cellulitis with abscess of the thigh which was drained and is healing nicely. However the patient began having fevers with significant left shift with 17% bands on his initial evaluation. The etiology of this was somewhat unclear as the patient had cellulitis but the wound was looking quite good actually. On evaluation the thigh wound had approximately 1 cm in diameter hole which was healing nicely without evidence of cellulitis around this and was essentially nontender. This had apparently been drained a couple weeks ago and this fever was new. The patient was felt to need to be admitted and placed on IV vancomycin initially while we did the evaluation to look for the source of the fever. PHYSICAL EXAMINATION: Revealed a well nourished, well developed white male patient in no obvious distress. HEENT: Normocephalic, atraumatic. Pupils equal round reactive to light. Extraocular movements intact. Oropharynx is pink and moist. NECK: Supple without lymphadenopathy, thyromegaly or JVD. CHEST: Clear to auscultation with good air movement bilaterally. HEART: Regular rate and rhythm without murmurs, rubs or gallops. ABDOMEN: Soft, nontender, nondistended without hepatosplenomegaly or masses. EXTREMITIES: Revealed left thigh with the lesion as previously described otherwise there was no clubbing, cyanosis or edema. NEUROLOGIC: The patient is alert and oriented x3 with no focal deficits. ASSESSMENT: A patient with fever undetermined origin at this time although he has had recent cellulitis and abscess drained. The concern is for possibility of developing bacterial endocarditis or deep seated wound infection. Again the patient has been placed on IV vancomycin. I will be adding Levaquin to this as the etiology is currently unclear. Cultures will be obtained of blood and urine. The patient otherwise appears to be in no distress other than the significant fact of the fever.
[2017-10-16 13:53] LABS: Ehrlichia IgM < 1:16 (< 1:16)
== END 2017-10-10 12:10 | disposition home or self-care (01) | DRG 603 ==
LOC: MED SURG → INTOOBSV 10-07 → OBSVTOIN 10-07
PROVIDERS: ADMIT Internal Medicine; ATTEND Internal Medicine
DX: L03.115 Cellulitis of right lower limb (principal); W57.XXXA Bitten or stung by nonvenomous insect and other nonvenomous arthropods, initial encounter; R50.9 Fever, unspecified; D72.819 Decreased white blood cell count, unspecified; D69.6 Thrombocytopenia, unspecified; Z78.9 Other specified health status
CPT/HCPCS: 36415; 71046; 73552; 80048; 80053; 80202; 81000; 83605; 85025; 85060; 85652; 86308; 86617; 86618; 86666; 86701; 86702; 86757; 87040; 87086; 87389; G0378; J1956; J3370; A9270-GY

== ENCOUNTER 2020-04-16 07:48 | Day surgery (SDC) | payer BC ==
--- NOTE | 2020-04-13 14:43 | HP ---
DATE OF SURGERY: 04/16/2020 HISTORY OF PRESENT ILLNESS: The patient presents with complaints of umbilical hernia. He states that it feels like it pushes and pulls. He feels a bulge. It is not too painful at this moment. It does reduce. PAST MEDICAL HISTORY: Hypertension, hyperlipidemia, reflux, anxiety, herniated disc in the back. PAST SURGICAL HISTORY: Cholecystectomy. Appendectomy. ALLERGIES: NKDA. MEDICATIONS: Alprazolam, loratadine, atorvastatin, omeprazole, Singulair, gabapentin, Lisinopril. FAMILY HISTORY: Mother recently of COVID. Father had cancer. Brother has leukemia. SOCIAL HISTORY: Negative. REVIEW OF SYSTEMS: CONSTITUTIONAL: Denies fever or chills. CHEST: Denies shortness of breath. CVS: Denies chest pain. ABDOMEN: Reports umbilical hernia pain. Denies nausea, vomiting, diarrhea, constipation or rectal bleeding. INTEGUMENTARY: None. PHYSICAL EXAMINATION: GENERAL: No acute distress. CHEST: Nonlabored. No shortness of breath. CVS: Regular rate and rhythm. ABDOMEN: Reducible small umbilical hernia, tender. EXTREMITIES: No edema. NEUROLOGIC: Alert. PSYCHIATRIC: Appropriate. IMPRESSION: Symptomatic umbilical hernia. PLAN: Umbilical hernia repair with Dr. Jovani Luo. As dictated by Jane Jaramillo NP.
[~2020-04-16 07:48] MED LIST: KEFZOL 1 GM ONE; Lactated Ringers 1,000 ML IV ONE; Sensorcaine 0.25% 10 ML ONE
[2020-04-16] MEDS ORDERED: Lactated Ringers 1,000 ML IV SCH (08:00)
[2020-04-16] MEDS ORDERED: CEFAZOLIN 2 GM-D5W BAG** 2 GM/50 ML ML IV SCH (08:00)
[2020-04-16] MEDS ORDERED: Lactated Ringers 1,000 ML IV ONE (08:03)
[2020-04-16] MEDS ORDERED: CEFAZOLIN 2 GM-D5W BAG** 2 GM/50 ML ML IV ONE (08:03)
[2020-04-16 08:47] LABS: ANION GAP 8.4 MEQ/L (5-15); BLOOD UREA NITROGEN 9 mg/dL (9-20); CHLORIDE 112 mmol/L (98-107); Calcium 8.8 mg/dL (8.4-10.2); Carbon Dioxide 25 mmol/L (22-30); Creatinine 1 0.85 mg/dL (0.66-1.25); EST GLOMERULAR FILTRATION RATE > 60.0 ML/MIN; Glucose 133 mg/dL (74-106); Potassium 3.8 mmol/L (3.5-5.1); SODIUM 141 mmol/L (137-145)
[2020-04-16] MEDS ORDERED: DIPRIVAN 200 MG/20 ML IV ONE (10:02)
[2020-04-16] MEDS ORDERED: SUBLIMAZE 250 MCG/5 ML ONE (10:02)
[2020-04-16] MEDS ORDERED: Versed 2 MG/2 ML Injection ONE (10:02)
[2020-04-16] MEDS ORDERED: Xylocaine-Mpf 2% 5 Ml Vial ONE (10:36)
[2020-04-16] MEDS ORDERED: SUBLIMAZE 100 MCG/2 ML ONE (10:56)
[2020-04-16] MEDS ORDERED: Zofran 4 MG/2 ML VIAL ONE (11:47)
[2020-04-16 12:06] VITALS: O2SAT 96
[2020-04-16 12:34] VITALS: BP 150/84; PULSE 72
--- NOTE | 2020-04-16 13:59 | OP ---
SURGERY DATE/TIME: 04/16/2020 1037 PREOPERATIVE DIAGNOSIS: Symptomatic umbilical hernia. POSTOPERATIVE DIAGNOSIS: Symptomatic umbilical hernia. PROCEDURE: Primary umbilical herniorrhaphy. SURGEON: Jovani Luo M.D. ANESTHESIA: General. COMPLICATIONS: None. CONDITION: Stable. INDICATION: The patient has symptomatic umbilical hernia. DESCRIPTION OF PROCEDURE: Taken to surgery. General anesthetic. Routine prep and drape. Transverse umbilical incision. Right in the middle of the umbilicus defect was 8 mm. There was a little bit of softness and weakness right above this. The fascia was defined. Three sutures of 0 Prolene were placed and then a suture basically coming from below to cephalad and across and then back to low was placed. These were tied down. Two additional figure-of-8 Vicryl were placed over the top of this and this felt firm. Skin approximated with 4-0 Vicryl, compression umbilical dressing. The patient tolerated the procedure satisfactorily.
== END 2020-04-16 12:40 | disposition home or self-care (01) ==
LOC: SDC 07:48
PROVIDERS: ATTEND Surgery
DX: K42.9 Umbilical hernia without obstruction or gangrene (principal); I10 Essential (primary) hypertension; E78.5 Hyperlipidemia, unspecified; K21.9 Gastro-esophageal reflux disease without esophagitis; Z79.899 Other long term (current) drug therapy
CPT/HCPCS: 36415; 80048; J0690; J2250; J2405; J2704; J3010

== ENCOUNTER 2022-08-14 17:59 | Emergency (ER) | payer BC ==
--- NOTE | 2022-08-14 18:06 | ERPHSYRPT ---
- History of Present Illness Historian: patient, family Exam Limitations: no limitations Timing/Duration: yesterday Activities at Onset: none Abdominal Pain Onset Location: LLQ Severity of Pain-Max: mild (To moderate) Severity of Pain-Current: mild (To moderate. Worse when he is moving or abdomen is pressed) Modifying Factors: Improves With: other. Worsens With: vomiting Associated Symptoms: fever/chills, loss of appetite, nausea, No chest pain, No diarrhea, No vomiting, No other Previous symptoms: no prior history, no recent treatment Hx Tetanus, Diphtheria Vaccination/Date Given: Yes Hx Influenza Vaccination/Date Given: Yes Hx Pneumococcal Vaccination/Date Given: Yes <SIS ARELLANO - Last Filed: 08/14/22 19:09> <MISAEL ALMENDAREZ - Last Filed: 08/14/22 21:09> - History of Present Illness Time Seen by Provider: 08/14/22 18:06 Physician History: This is a 56-year-old white male with left lower quad abdominal pain that began last evening. This patient's primary care doctor is Dr. Pierson. Patient has nausea but no vomiting. He is actually has had some constipation and no diarrhea. Patient's never had anything like this before. The pain has been worsening. At this time he says it is tolerable when he is not moving. He does not want any pain medicine at this time. He will take antiemetic at this time. Patient denies chest pain. Patient denies shortness of breath. Patient states he also had a low-grade fever of 100.4 F yesterday. He is afebrile at this time. (SIS ARELLANO) Allergies/Adverse Reactions: No Known Drug Allergies Allergy (Verified 08/14/22 18:34) Home Medications: ALPRAZolam 0.25 MG [xanAX 0.25 MG] 0.25 mg PO BID 09/24/16 [History] Albuterol Sulfate [Proair Hfa] 2 puff IH Q12H PRN PRN 09/24/16 [History] Atorvastatin Calcium 40 mg PO HS 09/24/16 [History] Loratadine 10 mg [Claritin 10 mg] 10 mg PO DAILY 09/24/16 [History] Omeprazole 20 MG [Prilosec 20 mg] 20 mg PO HS 09/24/16 [History] Mometasone Furoate [Nasonex] 17 gm NS DAILY 10/06/17 [History] Multivitamin [Multi-Vitamin Daily] 1 each PO DAILY 10/06/17 [History] EPINEPHrine [Epipen 2-Ty] 0.3 mg IM DAILY PRN 04/08/20 [History] Montelukast Sodium 10 mg [Singulair 10 MG] 10 mg PO DAILY 04/08/20 [History] Sildenafil Citrate [Viagra] 100 mg PO DAILY PRN 04/08/20 [History] lisinopriL [Lisinopril] 5 mg PO DAILY 04/08/20 [History] Travel Risk - International Travel Have you traveled outside of the country in past 3 weeks: No - Coronavirus Screening Are you exhibiting any of the following symptoms?: No Close contact with a COVID-19 positive Pt in past 14-21 Days: No <SIS ARELLANO - Last Filed: 08/14/22 19:09> - Review of Systems Constitutional: Fever (At home but afebrile here) Eyes: No Symptoms Ears, Nose, & Throat: No Symptoms Respiratory: No Symptoms Cardiac: No Symptoms Abdominal/Gastrointestinal: Abdominal Pain (Floor quadrant), Nausea, Constipation, Appetite Changes, No Vomiting, No Diarrhea Genitourinary Symptoms: No Symptoms Musculoskeletal: No Symptoms Skin: No Symptoms Neurological: No Symptoms Psychological: No Symptoms Endocrine: No Symptoms Hematologic/Lymphatic: No Symptoms Immunological/Allergic: No Symptoms All Other Systems: Reviewed and Negative <SIS ARELLANO - Last Filed: 08/14/22 19:09> - Past Medical History Pertinent Past Medical History: Yes Neurological History: No Pertinent History Cardiac History: High Cholesterol, Hypertension Respiratory History: No Pertinent History Endocrine Medical History: No Pertinent History Musculoskeletal History: Degenerative Disk Disease GI Medical History: No Pertinent History History: No Pertinent History Psycho-Social History: Anxiety Male Reproductive Disorders: No Pertinent History Other Medical History: HX OF LAMINECTOMY FOR DISC L4-L5 08/[address] GREEN - Past Surgical History Past Surgical History: Yes Neuro Surgical History: No Pertinent History Cardiac: No Pertinent History Respiratory: No Pertinent History Gastrointestinal: Appendectomy, Cholecystectomy Genitourinary: No Pertinent History Musculoskeletal: No Pertinent History Male Surgical History: No Pertinent History Other Surgical History: Nose surger for fx - Social History Smoking Status: Never smoker Exposure to second hand smoke: No Drug Use: none Patient Lives Alone: No <SIS ARELLANO - Last Filed: 08/14/22 19:09> - Physical Exam General Appearance: no apparent distress, alert, anxiety Eye Exam: PERRL/EOMI, eyes nml inspection Ears, Nose, Throat Exam: normal ENT inspection, moist mucous membranes Neck Exam: normal inspection, non-tender, supple, full range of motion Respiratory Exam: normal breath sounds, lungs clear, airway intact, No chest tenderness, No respiratory distress Cardiovascular Exam: regular rate/rhythm, normal heart sounds, normal peripheral pulses Gastrointestinal/Abdomen Exam: soft, normal bowel sounds, tenderness (Left lower quadrant to palpation), guarding (Left lower quadrant to palpation), No rebound Rectal Exam: not done Back Exam: normal inspection, normal range of motion, No CVA tenderness, No vertebral tenderness Extremity Exam: normal inspection, normal range of motion, pelvis stable Neurologic Exam: alert, oriented x 3, cooperative, cork grinder II-XII nml as tested, normal mood/affect, nml cerebellar function, nml station & gait, sensation nml Skin Exam: normal color, warm, dry Lymphatic Exam: No adenopathy SpO2 Interpretation: normal O2 Delivery: Room Air <SIS ARELLANO - Last Filed: 08/14/22 19:09> - Nursing Vital Signs Nursing Vital Signs: Initial Vital Signs Temperature 98.4 F 08/14/22 18:31 Pulse Rate 103 H 08/14/22 18:31 Respiratory Rate 20 08/14/22 18:31 Blood Pressure 154/74 08/14/22 18:31 O2 Sat by Pulse Oximetry 96 08/14/22 18:31 Pain Scale Pain Intensity 4 - Course Nursing assessment & vital signs reviewed: Yes <SIS ARELLANO - Last Filed: 08/14/22 19:09> - CT Exams Abdomen/Pelvis CT Interpretation: Tele-radiologist Report, diverticulitis (mild to moderate posterior to proximal sigmoid w/o abscess or free air) <MISAEL ALMENDAREZ - Last Filed: 08/14/22 21:09> Ordered Tests: Active Orders 24 hr Category Date Time Status IV Insertion STAT Care 08/14/22 18:44 Active ABDOMEN AND PELVIS W/0 CONTRAS [CT] Stat Exams 08/14/22 18:56 Taken AMYLASE Stat Lab 08/14/22 19:51 Completed BLOOD CULTURE Stat Lab 08/14/22 19:51 Received CBC W DIFF Stat Lab 08/14/22 19:51 Completed CMP Stat Lab 08/14/22 19:51 Completed LIPASE Stat Lab 08/14/22 19:51 Completed UA W/RFX UR CULTURE Stat Lab 08/14/22 19:01 Completed Medication Summary Discontinued Medications Generic Name Dose Route Start Last Admin Trade Name Freq PRN Reason Stop Dose Admin Doxycycline Hyclate 100 mg 08/14/22 19:57 08/14/22 20:08 Doxycycline Hyclate 100 Mg Tablet PO 08/14/22 19:58 100 mg STAT ONE Administration Doxycycline Hyclate Confirm 08/14/22 20:06 Doxycycline Hyclate 100 Mg Tablet Administered 08/14/22 20:07 Dose 100 mg .ROUTE .STK-MED ONE Sodium Chloride 1,000 mls @ 999 mls/hr 08/14/22 18:44 08/14/22 20:57 Sodium Chloride 0.9% 1000 Ml IV 08/14/22 19:44 Infused .Q1H1M STA Infusion Sodium Chloride Confirm 08/14/22 19:44 Sodium Chloride 0.9% 1000 Ml Administered 08/14/22 19:45 Dose 1,000 mls @ ud .ROUTE .STK-MED ONE Metronidazole 500 mg 08/14/22 19:57 08/14/22 20:08 Metronidazole 500 Mg Tablet PO 08/14/22 19:58 500 mg STAT ONE Administration Metronidazole Confirm 08/14/22 20:06 Metronidazole 500 Mg Tablet Administered 08/14/22 20:07 Dose 500 mg .ROUTE .STK-MED ONE Morphine Sulfate 2 mg 08/14/22 19:55 08/14/22 20:08 Morphine Sulfate 2 Mg/Ml Inj IV 08/14/22 19:56 2 mg STAT ONE Administration Morphine Sulfate Confirm 08/14/22 20:06 Morphine Sulfate 2 Mg/Ml Inj Administered 08/14/22 20:07 Dose 2 mg .ROUTE .STK-MED ONE Ondansetron HCl 4 mg 08/14/22 19:55 08/14/22 20:08 Ondansetron Hcl 4 Mg/2 Ml Vial IV 08/14/22 19:56 4 mg STAT ONE Administration Ondansetron HCl Confirm 08/14/22 20:06 Ondansetron Hcl 4 Mg/2 Ml Vial Administered 08/14/22 20:07 Dose 4 mg .ROUTE .STK-MED ONE Lab/Rad Data: Laboratory Result Diagrams 08/14/22 19:51 08/14/22 19:51 Laboratory Results 08/14/22 08/14/22 08/14/22 Range/Units 19:51 19:51 19:01 WBC 11.7 H (4.0-10.5) x10^3/uL RBC 4.89 (4.1-5.6) x10^6/uL Hgb 14.5 (12.5-18.0) g/dL Hct 42.7 (42-50) % MCV 87.3 (78-100) fL MCH 29.7 (26-32) pg MCHC 34.0 (32-36) g/dL RDW 12.7 (11.5-14.0) % Plt Count 213 (150-450) x10^3/uL MPV 10.9 (7.5-11.0) fL Gran % 78.1 H (36.0-66.0) % Immature Gran % (Auto) 0.5 H (0.00-0.4) % Nucleat RBC Rel Count 0.0 (0.00-0.1) % Eos # (Auto) 0.01 (0-0.5) x10^3/uL Immature Gran # (Auto) 0.06 H (0.00-0.03) x10^3u/L Absolute Lymphs (auto) 1.46 (1.0-4.6) x10^3/uL Absolute Monos (auto) 0.99 (0.0-1.3) x10^3/uL Absolute Nucleated RBC 0.00 (0.00-0.01) x10^3u/L Lymphocytes % 12.5 L (24.0-44.0) % Monocytes % 8.5 (0.0-12.0) % Eosinophils % 0.1 (0.00-5.0) % Basophils % 0.3 (0.0-0.4) % Absolute Granulocytes 9.14 H (1.4-6.9) x10^3/uL Basophils # 0.03 (0-0.4) x10^3/uL Sodium 139 (137-145) mmol/L Potassium 3.6 (3.5-5.1) mmol/L Chloride 105 (98-107) mmol/L Carbon Dioxide 25 (22-30) mmol/L Anion Gap 12.6 (5-15) MEQ/L BUN 9 (9-20) mg/dL Creatinine 0.90 (0.66-1.25) mg/dL Estimated GFR > 60.0 ML/MIN Glucose 108 H (74-106) mg/dL Calcium 8.6 (8.4-10.2) mg/dL Total Bilirubin 0.80 (0.2-1.3) mg/dL AST 30 (17-59) U/L ALT 44 (0-50) U/L Alkaline Phosphatase 90 (38-126) U/L Serum Total Protein 7.3 (6.3-8.2) g/dL Albumin 4.4 (3.5-5.0) g/dL Amylase 46 (30-110) U/L Lipase 57 (23-300) U/L Urine Color Yellow (Yellow) Urine Appearance Turbid A (Clear) Urine pH 6.0 (4.6-8.0) Ur Specific [place] 1.010 (1.005-1.030) Urine Protein Negative (Negative) Urine Glucose (UA) Negative (Negative) mg/dL Urine Ketones Negative (Negative) Urine Blood Negative (Negative) Urine Nitrite Negative (Negative) Urine Bilirubin Negative (Negative) Urine Urobilinogen 0.2 (0.2) mg/dL Ur Leukocyte Esterase Negative (Negative) U Hyaline Cast (Auto) NONE SEEN (0-2) /LPF Urine Microscopic RBC 0-2 (0-5) /HPF Urine Microscopic WBC 0-2 (0-5) /HPF Ur Epithelial Cells None Seen (None Seen) /HPF Urine Bacteria None Seen (None Seen) /HPF Urine Culture Reflexed NO (NO) - Progress Progress: improved Counseled pt/family regarding: lab results, diagnosis, rad results <SIS ARELLANO - Last Filed: 08/14/22 19:09> <MISAEL ALMENDAREZ - Last Filed: 08/14/22 21:09> - Progress Progress Note: 08/14/22 19:12 Patient care transferred to Dr. Almendarez at shift change. He will follow-up on pending studies and make final disposition. (SIS ARELLANO) 08/14/22 21:07 Mildly elevated WBC count at 11.7 otherwise normal lab evaluation. CT abd/pelvis showed acute diverticulitis. Patient reports recent tick bite and reports tick on for 3 days. Will cover diverticulitis w/ Doxycycline and Flagyl to also cover for possible tick bourne illness. (MISAEL ALMENDAREZ) - Departure Departure Disposition: Home Critical Care Time: No <SIS ARELLANO - Last Filed: 08/14/22 19:09> <MISAEL ALMENDAREZ - Last Filed: 08/14/22 21:09> - Departure Clinical Impression: Abdominal pain, Diverticulitis large intestine w/o perforation or abscess w/o bleeding, Tick bite Condition: Stable Referrals: DOT PIERSON MD [Primary Care Provider] - Follow up/PCP as directed Instructions: Diverticulitis (DC) Prescriptions: Doxycycline Monohydrate 100 mg PO BID 10 Days #20 cap Metronidazole 500 mg [Flagyl 500 MG] 500 mg PO TID 10 Days #30 tablet ondansetron HCL [Ondansetron HCl] 4 mg PO Q6H PRN 5 Days #20 tablet PRN Reason: Nausea
[2022-08-14 18:33] VITALS: BP 154/74; PULSE 103; O2SAT 96
[2022-08-14] MEDS ORDERED: Sodium Chloride 0.9% 1000 ML 1,000 ML IV STA (18:44)
[2022-08-14 19:22] LABS: Appearance Turbid (Clear); Bacteria None Seen /HPF (None Seen); Bilirubin Negative (Negative); Blood Negative (Negative); Epithelial Cells None Seen /HPF (None Seen); Glucose, Urine Negative (Negative); Hyaline Casts NONE SEEN /LPF (0-2); Ketones Negative (Negative); Leukocyte Esterase Negative (Negative); Nitrite Negative (Negative); Protein,Urine Dip Negative (Negative); RBC 0-2 /HPF (0-5); Urobilinogen 0.2 mg/dL (0.2); WBC 0-2 /HPF (0-5)
[2022-08-14 19:26] LABS: ADD URINE CULTURE? NO (NO)
[2022-08-14] MEDS ORDERED: Sodium Chloride 0.9% 1000 ML 1,000 ML ONE (19:44)
[2022-08-14 19:54] LABS: Absolute Neutrophil Ct (ANC) 9.14 x10^3/uL (1.4-6.9); BASOPHIL % 0.3 % (0.0-0.4); Basophil (Absolute #) 0.03 x10^3/uL (0-0.4); Eosinophil % 0.1 % (0.00-5.0); Eosinophil (Absolute #) 0.01 x10^3/uL (0-0.5); Hematocrit 42.7 % (42-50); Hemoglobin 14.5 g/dL (12.5-18.0); IMMATURE GRAN # 0.06 x10^3u/L (0.00-0.03); IMMATURE GRAN % 0.5 % (0.00-0.4); Lymphocyte (Absolute #) 1.46 x10^3/uL (1.0-4.6); Lymphocytes % 12.5 % (24.0-44.0); Mean Cell Volume 87.3 fL (78-100); Mean Corpuscular Hemoglobin 29.7 pg (26-32); Mean Platelet Volume 10.9 fL (7.5-11.0); Monocyte (Absolute #) 0.99 x10^3/uL (0.0-1.3); Monocytes % 8.5 % (0.0-12.0); Neutrophil % 78.1 % (36.0-66.0); Platelet Count 213 x10^3/uL (150-450); Red Blood Count 4.89 x10^6/uL (4.1-5.6); Red Cell Distribution Width 12.7 % (11.5-14.0); White Blood Count 11.7 x10^3/uL (4.0-10.5)
[2022-08-14] MEDS ORDERED: Zofran 4 MG/2 ML VIAL IV ONE (19:55)
[2022-08-14] MEDS ORDERED: MORPHINE SULFATE 2 MG INJ IV ONE (19:55)
[2022-08-14] MEDS ORDERED: Vibramycin 100 MG PO ONE (19:57)
[2022-08-14] MEDS ORDERED: Flagyl 500 MG PO ONE (19:57)
[2022-08-14] MEDS ORDERED: Vibramycin 100 MG ONE (20:06)
[2022-08-14] MEDS ORDERED: Zofran 4 MG/2 ML VIAL ONE (20:06)
[2022-08-14] MEDS ORDERED: Flagyl 500 MG ONE (20:06)
[2022-08-14] MEDS ORDERED: MORPHINE SULFATE 2 MG INJ ONE (20:06)
[2022-08-14 20:07] LABS: ALBUMIN 4.4 g/dL (3.5-5.0); ALKALINE PHOSPHATASE 90 U/L (38-126); AMYLASE 46 U/L (30-110); ANION GAP 12.6 MEQ/L (5-15); BLOOD UREA NITROGEN 9 mg/dL (9-20); CHLORIDE 105 mmol/L (98-107); Calcium 8.6 mg/dL (8.4-10.2); Carbon Dioxide 25 mmol/L (22-30); EST GLOMERULAR FILTRATION RATE > 60.0 ML/MIN; Glucose 108 mg/dL (74-106); LIPASE 57 U/L (23-300); Potassium 3.6 mmol/L (3.5-5.1); SGOT/AST 30 U/L (17-59); SGPT/ALT 44 U/L (0-50); SODIUM 139 mmol/L (137-145); Total Protein 7.3 g/dL (6.3-8.2)
--- NOTE | 2022-08-15 08:42 | XRAY ---
Indication: Left lower quadrant pain, body ache, and fever. Multiple contiguous axial images obtained through the abdomen and pelvis without contrast. Comparison: June 23, 2017 Lung bases clear. Heart is not enlarged. Noncontrasted stomach and bowel loops appear nonobstructed. Again minimal scattered descending and sigmoid diverticulosis. Proximal sigmoid colon demonstrates new mild wall thickening with mild pericolonic stranding favoring diverticulitis. Again appendectomy/post cystectomy. No free fluid/air. Remaining liver, pancreas, spleen, adrenal glands, kidneys, ureters, and bladder are unremarkable for noncontrast exam. Minimal aortoiliac calcifications without AAA. Osseous structures intact again with mild degenerative changes throughout the spine. Impression: 1. New mild proximal sigmoid diverticulitis without complications. 2. Chronic findings including arteriosclerotic disease and thoracolumbar degenerative spondylosis. Comment: Preliminary interpretation made by [facility]. No critical discrepancy.
== END 2022-08-14 21:30 | disposition home or self-care (01) ==
LOC: ED 17:59
DX: K57.32 Diverticulitis of large intestine without perforation or abscess without bleeding (principal); R10.32 Left lower quadrant pain; T14.8XXA Other injury of unspecified body region, initial encounter; R11.0 Nausea; R50.9 Fever, unspecified; E78.5 Hyperlipidemia, unspecified; I10 Essential (primary) hypertension; Z79.899 Other long term (current) drug therapy
CPT/HCPCS: 36000; 36415; 74176; 80053; 81001; 82150; 83690; 85025; 87040; 96360; 96374; 96375; 99284; J2270; J2405; A9270-GY

== ENCOUNTER 2022-09-29 06:20 | Day surgery (SDC) | payer BC ==
[2022-09-29] MEDS ORDERED: Lactated Ringers 1,000 ML IV SCH (07:00)
[2022-09-29] MEDS ORDERED: DIPRIVAN 200 MG/20 ML IV ONE (07:58)
[2022-09-29] MEDS ORDERED: Xylocaine-Mpf 2% 5 Ml Vial ONE (07:59)
[2022-09-29] MEDS ORDERED: Versed 2 MG/2 ML Injection ONE (07:59)
[2022-09-29 08:53] VITALS: BP 106/60
--- NOTE | 2022-09-29 09:03 | OP ---
SURGERY DATE/TIME: 09/29/2022 0809 PREOPERATIVE DIAGNOSES: 1) Diverticulosis. 2) Screening colonoscopy. POSTOPERATIVE DIAGNOSES: 1) Sigmoid colon polyps x2. 2) Diverticulosis. PROCEDURE: Colonoscopy. SURGEON: Abrahan Pierson M.D. ANESTHESIA: MAC by Errol Esposito CRNA. ESTIMATED BLOOD LOSS: Minimal. SPECIMENS: Two hot forceps polypectomies sent in the same container from the sigmoid colon. DESCRIPTION OF PROCEDURE: After informed written consent was obtained, the patient was taken to the endoscopy suite. He was placed in left lateral decubitus position and anesthesia was titrated to desired level of consciousness. Digital rectal exam showed normal sphincter tone and no internal lesions. The scope was inserted into the rectum and sequentially the entire colonic mucosa was traversed. The level of cecum was reached and verified with direct visualization of the ileocecal valve. Upon withdrawal scattered diverticula were present mostly focused in the sigmoid colon. In the distal sigmoid, there were two small sessile polyps which were grasped with forceps, cauterized and removed in their entirety. They were in very close proximity so they were sent in the same specimen container. Prior to withdrawal retroflexion was performed and showed no internal lesions. The scope was removed. The patient was transferred to the recovery room in good condition. He was instructed to follow up in a week for pathology.
[2022-09-29 09:09] VITALS: PULSE 68; O2SAT 96
== END 2022-09-29 09:20 | disposition home or self-care (01) ==
LOC: SDC 06:20
PROVIDERS: ATTEND Family Medicine
DX: Z12.11 Encounter for screening for malignant neoplasm of colon (principal); D12.5 Benign neoplasm of sigmoid colon; K57.30 Diverticulosis of large intestine without perforation or abscess without bleeding
CPT/HCPCS: J2250; J2704

== ENCOUNTER 2023-04-23 16:15 | Emergency (ER) | payer BC ==
[2023-04-23 16:47] VITALS: TEMP 97.1
[2023-04-23] MEDS ORDERED: Sodium Chloride 0.9% 1000 ML 1,000 ML IV STA (17:02)
[2023-04-23] MEDS ORDERED: Zofran 4 MG/2 ML VIAL IV ONE (17:02)
[2023-04-23 17:23] LABS: Absolute Neutrophil Ct (ANC) 9.53 x10^3/uL (1.4-6.9); BASOPHIL % 0.2 % (0.0-0.4); Basophil (Absolute #) 0.02 x10^3/uL (0-0.4); Eosinophil % 0.1 % (0.00-5.0); Eosinophil (Absolute #) 0.01 x10^3/uL (0-0.5); Hematocrit 49.9 % (42-50); IMMATURE GRAN # 0.07 x10^3u/L (0.00-0.03); IMMATURE GRAN % 0.7 % (0.00-0.4); Lymphocyte (Absolute #) 0.54 x10^3/uL (1.0-4.6); Lymphocytes % 5.1 % (24.0-44.0); Mean Corpuscular Hgb Concent. 34.1 g/dL (32-36); Mean Platelet Volume 10.2 fL (7.5-11.0); Monocyte (Absolute #) 0.46 x10^3/uL (0.0-1.3); Monocytes % 4.3 % (0.0-12.0); Neutrophil % 89.6 % (36.0-66.0); Platelet Count 219 x10^3/uL (150-450); Red Blood Count 5.67 x10^6/uL (4.1-5.6); Red Cell Distribution Width 12.4 % (11.5-14.0); White Blood Count 10.6 x10^3/uL (4.0-10.5)
[2023-04-23] MEDS ORDERED: Zofran 4 MG/2 ML VIAL ONE (17:27)
[2023-04-23] MEDS ORDERED: Sodium Chloride 0.9% 1000 ML 1,000 ML ONE (17:27)
[2023-04-23 17:37] LABS: ALBUMIN 4.2 g/dL (3.5-5.0); ANION GAP 12.4 MEQ/L (5-15); BILIRUBIN,TOTAL 0.9 mg/dL (0.2-1.3); Calcium 8.6 mg/dL (8.4-10.2); Creatinine 1 0.71 mg/dL (0.66-1.25); EST GLOMERULAR FILTRATION RATE 105.7 ML/MIN; Potassium 3.8 mmol/L (3.5-5.1); Total Protein 7.3 g/dL (6.3-8.2)
--- NOTE | 2023-04-23 17:56 | ERPHSYRPT ---
- History of Present Illness Time Seen by Provider: 04/23/23 16:26 Historian: patient, family Exam Limitations: no limitations Patient Subjective Stated Complaint: Pt began the day with diarrhea and then he vomited and he has been doing both all day Triage Nursing Assessment: Pt brought to the ER by his , tachycardic, denies pain but states that his abdomen just has discomfort, pulses normal, skin n/w/d, no difficulty breathing, pt walked to the ER with no issues, doesn't appear to be in any distress Physician History: 57-year-old male presented in the ER with chief complaint of vomiting and diarrhea since morning. Patient reports he was having a bowel movement, started to feel some weird in lower abdomen followed by multiple episodes of loose stool. Later on he started to have nausea and multiple episodes of nonprojectile, nonbilious vomiting. Denies any hematemesis/hematochezia. No abdominal pain. No fever or chills reported. Denies any sick contact. Reports feeling weak fatigued tired and dehydrated. Allergies/Adverse Reactions: No Known Drug Allergies Allergy (Verified 04/23/23 16:47) Home Medications: ALPRAZolam 0.25 MG [xanAX 0.25 MG] 0.25 mg PO BID 09/24/16 [History] Albuterol Sulfate [Proair Hfa] 2 puff IH Q12H PRN PRN 09/24/16 [History] Atorvastatin Calcium 40 mg PO HS 09/24/16 [History] Loratadine 10 mg [Claritin 10 mg] 10 mg PO DAILY 09/24/16 [History] Omeprazole 20 MG [Prilosec 20 mg] 20 mg PO HS 09/24/16 [History] EPINEPHrine [Epipen 2-Ty] 0.3 mg IM DAILY PRN 04/08/20 [History] Montelukast Sodium 10 mg [Singulair 10 MG] 10 mg PO DAILY 04/08/20 [History] Sildenafil Citrate [Viagra] 100 mg PO DAILY PRN 04/08/20 [History] lisinopriL [Lisinopril] 5 mg PO DAILY 04/08/20 [History] Hx Tetanus, Diphtheria Vaccination/Date Given: Yes Hx Influenza Vaccination/Date Given: Yes Hx Pneumococcal Vaccination/Date Given: Yes Travel Risk - International Travel Have you traveled outside of the country in past 3 weeks: No - Coronavirus Screening Are you exhibiting any of the following symptoms?: Yes Symptoms: Vomiting/Diarrhea Close contact with a COVID-19 positive Pt in past 14-21 Days: No - Vaccine Status Have you recieved a Covid-19 vaccination: Yes [employer]: Pfizer - Vaccination Dates Date of 2cond Vaccination (if applicable): 2020 - Review of Systems Constitutional: Fatigue, Weakness Eyes: No Symptoms Ears, Nose, & Throat: No Symptoms Respiratory: No Symptoms Cardiac: No Symptoms Abdominal/Gastrointestinal: Nausea, Vomiting, Diarrhea Genitourinary Symptoms: No Symptoms Musculoskeletal: No Symptoms Skin: No Symptoms Neurological: No Symptoms Psychological: No Symptoms Endocrine: No Symptoms Hematologic/Lymphatic: No Symptoms - Past Medical History Pertinent Past Medical History: Yes Neurological History: No Pertinent History Cardiac History: High Cholesterol, Hypertension Respiratory History: No Pertinent History, Other Endocrine Medical History: No Pertinent History Musculoskeletal History: Degenerative Disk Disease GI Medical History: No Pertinent History History: No Pertinent History Psycho-Social History: Anxiety Male Reproductive Disorders: No Pertinent History Other Medical History: HX OF LAMINECTOMY FOR DISC L4-L5 08/[address] GREEN. environmental allergies causes occasional wheezing - Past Surgical History Past Surgical History: Yes Neuro Surgical History: No Pertinent History Cardiac: No Pertinent History Respiratory: No Pertinent History Gastrointestinal: Appendectomy, Cholecystectomy, Hernia Repair Genitourinary: No Pertinent History Musculoskeletal: No Pertinent History, Orthopedic Surgery Male Surgical History: No Pertinent History Other Surgical History: Nose surger for fx. back surgery - Social History Smoking Status: Never smoker Exposure to second hand smoke: No Drug Use: none Patient Lives Alone: No - Nursing Vital Signs Nursing Vital Signs: Initial Vital Signs Temperature 97.1 F 04/23/23 16:40 Pulse Rate 113 H 04/23/23 16:40 Blood Pressure 121/74 04/23/23 16:40 O2 Sat by Pulse Oximetry 95 04/23/23 16:40 Pain Scale Pain Intensity 0 - Physical Exam General Appearance: no apparent distress, alert Eye Exam: PERRL/EOMI Ears, Nose, Throat Exam: normal ENT inspection Neck Exam: normal inspection, non-tender, supple, full range of motion Respiratory Exam: normal breath sounds, lungs clear Cardiovascular Exam: normal heart sounds, tachycardia Gastrointestinal/Abdomen Exam: soft, normal bowel sounds, No tenderness, No distention Back Exam: normal inspection, normal range of motion Extremity Exam: normal inspection, normal range of motion, pelvis stable Neurologic Exam: alert, oriented x 3, cooperative Skin Exam: normal color SpO2 Interpretation: normal SpO2: 95 O2 Delivery: Room Air Ordered Tests: Active Orders 24 hr Category Date Time Status IV Insertion STAT Care 04/23/23 17:02 Active NPO (ED) STAT Care 04/23/23 17:02 Active CBC W DIFF Stat Lab 04/23/23 17:20 Completed CMP Stat Lab 04/23/23 17:20 Completed LIPASE Stat Lab 04/23/23 17:20 Completed UA W/RFX UR CULTURE Stat Lab 04/23/23 17:02 Ordered Medication Summary Generic Name Dose Route Start Last Admin Trade Name Freq PRN Reason Stop Dose Admin Sodium Chloride 1,000 mls @ 999 mls/hr 04/23/23 17:02 04/23/23 17:31 Sodium Chloride 0.9% 1000 Ml IV 04/23/23 18:02 999 mls/hr .Q1H1M STA Administration Discontinued Medications Generic Name Dose Route Start Last Admin Trade Name Freq PRN Reason Stop Dose Admin Sodium Chloride Confirm 04/23/23 17:27 Sodium Chloride 0.9% 1000 Ml Administered 04/23/23 17:28 Dose 1,000 mls @ ud .ROUTE .STK-MED ONE Ondansetron HCl 4 mg 04/23/23 17:02 04/23/23 17:31 Ondansetron Hcl 4 Mg/2 Ml Vial IV 04/23/23 17:03 4 mg STAT ONE Administration Ondansetron HCl Confirm 04/23/23 17:27 Ondansetron Hcl 4 Mg/2 Ml Vial Administered 04/23/23 17:28 Dose 4 mg .ROUTE .STK-MED ONE Lab/Rad Data: Laboratory Result Diagrams 04/23/23 17:20 04/23/23 17:20 Laboratory Results 04/23/23 04/23/23 Range/Units 17:20 17:20 WBC 10.6 H (4.0-10.5) x10^3/uL RBC 5.67 H (4.1-5.6) x10^6/uL Hgb 17.0 (12.5-18.0) g/dL Hct 49.9 (42-50) % MCV 88.0 (78-100) fL MCH 30.0 (26-32) pg MCHC 34.1 (32-36) g/dL RDW 12.4 (11.5-14.0) % Plt Count 219 (150-450) x10^3/uL MPV 10.2 (7.5-11.0) fL Gran % 89.6 H (36.0-66.0) % Immature Gran % (Auto) 0.7 H (0.00-0.4) % Nucleat RBC Rel Count 0.0 (0.00-0.1) % Eos # (Auto) 0.01 (0-0.5) x10^3/uL Immature Gran # (Auto) 0.07 H (0.00-0.03) x10^3u/L Absolute Lymphs (auto) 0.54 L (1.0-4.6) x10^3/uL Absolute Monos (auto) 0.46 (0.0-1.3) x10^3/uL Absolute Nucleated RBC 0.00 (0.00-0.01) x10^3u/L Lymphocytes % 5.1 L (24.0-44.0) % Monocytes % 4.3 (0.0-12.0) % Eosinophils % 0.1 (0.00-5.0) % Basophils % 0.2 (0.0-0.4) % Absolute Granulocytes 9.53 H (1.4-6.9) x10^3/uL Basophils # 0.02 (0-0.4) x10^3/uL Sodium 136 L (137-145) mmol/L Potassium 3.8 (3.5-5.1) mmol/L Chloride 106 (98-107) mmol/L Carbon Dioxide 21 L (22-30) mmol/L Anion Gap 12.4 (5-15) MEQ/L BUN 16 (9-20) mg/dL Creatinine 0.71 (0.66-1.25) mg/dL Estimated GFR 105.7 ML/MIN Glucose 141 H (74-106) mg/dL Calcium 8.6 (8.4-10.2) mg/dL Total Bilirubin 0.90 (0.2-1.3) mg/dL AST 44 (17-59) U/L ALT 66 H (0-50) U/L Alkaline Phosphatase 77 (38-126) U/L Serum Total Protein 7.3 (6.3-8.2) g/dL Albumin 4.2 (3.5-5.0) g/dL Lipase 62 (23-300) U/L - Progress Progress: improved, re-examined Progress Note: 04/23/23 17:53 57-year-old male presented in the ER with chief complaint of vomiting and diarrhea since morning. Patient reports he was having a bowel movement, started to feel some weird in lower abdomen followed by multiple episodes of loose stool. Later on he started to have nausea and multiple episodes of nonproje ctile, nonbilious vomiting. Denies any hematemesis/hematochezia. No abdominal pain. No fever or chills reported. Denies any sick contact. Reports feeling weak fatigued tired and dehydrated. He is given fluid bolus along with Zofran, on reevaluation feeling much improved. No abdominal tenderness on repeated evaluation. Normal white count, fairly unremarkable chemistries. No UTI. I do not think patient needs imaging as I believe patient has viral gastroenteritis. Will give Zofran to go home and recommended taking Tylenol as needed. Discussed signs symptoms of worsening needing return to ER which he seems understanding Counseled pt/family regarding: lab results, diagnosis, need for follow-up Medical Desision Making - Independent Historian Additional History obtained from: Spouse - Diagnostic Testing Diagnostic test were ordered, analyzed, and reviewed by me: Yes - Risk of complications The pt has a mod risk of morbidity or mortality based on: Need for prescription drug management - Departure Departure Disposition: Home Clinical Impression: Viral gastroenteritis Condition: Stable Critical Care Time: No Referrals: DOT POPE MD [Primary Care Provider] - Follow up with PCP 1 day Instructions: Viral gastroenteritis in adults Additional Instructions: Drink plenty of fluids. Take Tylenol/Zofran as needed. Follow-up with primary care for reevaluation. Return to ER for intractable vomiting/diarrhea or if having abdominal pain/fever chills etc. Prescriptions: Ondansetron ODT 4 MG [Zofran Odt 4 mg] 1 ea PO QIDPRN PRN #7 tablet PRN Reason: n/v
[2023-04-23 18:29] LABS: Appearance Clear (Clear); Bacteria None Seen /HPF (None Seen); Bilirubin Negative (Negative); Blood Negative (Negative); Epithelial Cells None Seen /HPF (None Seen); Glucose, Urine Negative (Negative); Hyaline Casts NONE SEEN /LPF (0-2); Ketones 15 (Negative); Leukocyte Esterase Negative (Negative); Nitrite Negative (Negative); Protein,Urine Dip Trace (Negative); RBC 0-2 /HPF (0-5); WBC 0-2 /HPF (0-5)
[2023-04-23 18:31] LABS: ADD URINE CULTURE? NO (NO)
[2023-04-23 18:35] LABS: INFLUENZA A NEGATIVE (NEGATIVE); INFLUENZA B NEGATIVE (NEGATIVE); RESPIRATORY SYNCTIAL VIRUS NEGATIVE (NEGATIVE); SARS-CoV-2 Xpert Express NEGATIVE (NEGATIVE)
[2023-04-23 18:46] LABS: Slide Review 1 YES
[2023-04-23 19:29] VITALS: BP 128/90; PULSE 92; RESP 16; O2SAT 96
== END 2023-04-23 19:34 | disposition home or self-care (01) ==
LOC: ED 16:15
DX: A08.4 Viral intestinal infection, unspecified (principal); R11.2 Nausea with vomiting, unspecified; R19.7 Diarrhea, unspecified; R53.1 Weakness; R53.83 Other fatigue; E78.5 Hyperlipidemia, unspecified; I10 Essential (primary) hypertension; Z79.899 Other long term (current) drug therapy
CPT/HCPCS: 0241U; 36000; 36415; 80053; 81001; 83690; 85025; 96360; 96374; 99284; J2405